=== PATIENT | male | born 1955 | race Caucasian/White ===

== ENCOUNTER 2017-04-13 07:59 | Outpatient (CLI) | payer OTHER ==
--- NOTE | 2017-04-13 08:51 | CT ---
CT THORAX NONCONTRAST: (LOW DOSE LUNG CANCER SCREENING) DATE: 04/13/17 HISTORY: 61-year-old male smoker with at least mild dyspnea. COMPARISON: None. FINDINGS: The lungs are clear, with no suspicious pulmonary nodules, ground-glass densities, air space opacitie s, bullae, pulmonary edema, or bronchiectasis. No pleural effusion or pneumothorax. No cardiomegaly o r pericardial effusion. No thoracic aortic aneurysm. Trachea and main bronchi are normal in caliber a nd are clear. No destructive osseous lesion. Bilateral gynecomastia. There is a calcified right hilar lymph node consistent with old (inactive) granulomatous disease. IMPRESSION: 1. Lung-RADS Category 1 - Negative. Less than 1% chance of malignancy. 2. Recommend continued annual low dose screening CT. 3. bilateral gynecomastia. JN R POS: CET
== END 2017-04-13 08:00 | disposition home or self-care (01) ==
LOC: CT 07:59
PROVIDERS: ATTEND Family Medicine
DX: Z12.2 Encounter for screening for malignant neoplasm of respiratory organs (principal); F17.210 Nicotine dependence, cigarettes, uncomplicated; N62 Hypertrophy of breast
CPT/HCPCS: G0297

== ENCOUNTER 2023-07-29 02:02 | Observation (INO) | payer MEDICARE, OTHER ==
[2023-07-29] MEDS ORDERED: HYDROcodone/Acetaminophen 5/325 mg Tablet PO PRN (02:43)
[2023-07-29] MEDS ORDERED: Ondansetron ODT 4 MG TAB PO PRN (02:43)
[2023-07-29] MEDS ORDERED: Acetaminophen 325 MG TAB PO PRN (02:43)
[2023-07-29 02:54] VITALS: BMI 30.9
[2023-07-29 04:31] LABS: #Basophils 0.03 10x3/uL (0.0-0.2); %Basophils 0.4 % (0.0-1.0); %Eosinophils 1.5 % (0.0-10.0); %Lymphocytes 35.8 % (21.0-51.0); %Monocytes 5.4 % (0.0-10.0); %Neutrophils 56.8 % (42.0-75.0); Hematocrit 40.9 % (42.0-52.0); Hemoglobin 13.6 g/dL (14.0-18.0); Mean Corpuscular HGB CONC 33.3 g/dL (32.0-36.0); Mean Corpuscular Hemoglobin 31.9 pg (27.0-31.0); Mean Corpuscular Volume 95.8 fL (78.0-98.0); Platelet Count 226 10x3/uL (130-400); RBC Distribution Width 12.2 % (11.5-14.5); Red Blood Cell (RBC) Count 4.27 mill/uL (4.70-6.10)
[2023-07-29 04:48] LABS: ALT (SGPT) 12 U/L (8-55); AST (SGOT) 13 U/L (5-34); Albumin 3.6 g/dL (3.4-4.8); Alkaline Phosphatase 54 U/L (40-110); Anion Gap 10 mmol/L (10-20); BUN (Urea Nitrogen) 15 mg/dL (8.4-25.7); Bilirubin, Total 0.3 mg/dL (0.2-1.2); Calc. Creatinine Clearance 116 mL/min (70-130); Calcium 9.2 mg/dL (7.8-10.44); Carbon Dioxide 27 mmol/L (23-31); Chloride 105 mmol/L (98-107); Estimated GFR 89; Globulin 2.9 g/dL (2.4-3.5); Glucose 104 mg/dL (80-115); Potassium 4.2 mmol/L (3.5-5.1); Protein, Total 6.5 g/dL (5.8-8.1); Sodium 138 mmol/L (136-145)
[2023-07-29] MEDS ORDERED: Lisinopril 10 MG TAB PO SCH (09:00)
[2023-07-29] MEDS ORDERED: Famotidine 20 MG TAB PO SCH (09:00)
[2023-07-29] MEDS: Enoxaparin 40 MG (0.4 mL) SYRINGE SC SCH (09:33)
[2023-07-29] MEDS: Sertraline 100 MG TAB PO SCH (09:33)
[2023-07-29] MEDS: Pantoprazole DR 40 MG TAB PO SCH (09:33)
[2023-07-29 09:34] LABS: Troponin I Less than 0.010 ng/mL (< 0.028)
[2023-07-29] MEDS: Loratadine 10 MG TAB PO SCH (10:43)
[2023-07-29] MEDS ORDERED: Iopamidol-370 76% 500 ML MDV (1 ML CHARGE) ONE ×2 (12:31→12:36)
[2023-07-29] MEDS ORDERED: Regadenoson 0.4 MG/5 ML SYRINGE ONE (13:02)
[2023-07-29] MEDS: Sodium Chloride 0.9% 500 ML IV SCH (16:28)
[2023-07-29 16:37] VITALS: BP 130/76; TEMP 97.3
== END 2023-07-29 18:51 | disposition home or self-care (01) ==
LOC: 2SW 02:02
PROVIDERS: ADMIT Internal Medicine; ATTEND Internal Medicine
PROC: B246ZZZ Ultrasonography of Right and Left Heart (ICD-10-PCS; principal; 2023-07-29)
DX: H53.8 Other visual disturbances (principal); I10 Essential (primary) hypertension; F32.A Depression, unspecified; K44.9 Diaphragmatic hernia without obstruction or gangrene; J30.2 Other seasonal allergic rhinitis; K21.9 Gastro-esophageal reflux disease without esophagitis; Z88.8 Allergy status to other drugs, medicaments and biological substances; Z79.899 Other long term (current) drug therapy
CPT/HCPCS: 70496; 71275; 72125; 78452; 80053; 84484; 85025; 93017; 93306; A9502; J1650; J2785 ×2; J7030; 36415; 96372; G0378; Q9967

== ENCOUNTER 2024-03-05 08:48 | Outpatient (CLI) | payer MEDICARE, OTHER | END 2024-03-05 08:49 | disposition home or self-care (01) | LOC: BICULT 08:48 | PROVIDERS: ATTEND Family Medicine | DX: Z12.2 Encounter for screening for malignant neoplasm of respiratory organs (principal); Z87.891 Personal history of nicotine dependence | CPT/HCPCS: 71271; 76775 ==

== ENCOUNTER 2024-09-04 14:36 | Outpatient (CLI) | payer MEDICARE, OTHER ==
[~2024-09-04 14:36] MED LIST: Iopamidol 370 76% 100 ML VIAL ONE
[2024-09-04 15:23] LABS: Estimated GFR - POC 81.0
== END 2024-09-04 14:37 | disposition home or self-care (01) ==
LOC: CT 14:36
PROVIDERS: ATTEND Internal Medicine Cardiovascular Disease
DX: I71.20 Thoracic aortic aneurysm, without rupture, unspecified (principal); I77.810 Thoracic aortic ectasia
CPT/HCPCS: 36415; 71275; 82565; Q9967